=== PATIENT | female | born 1990 | race Caucasian/White ===

== ENCOUNTER → 2017-05-04 | Outpatient (CLI) | payer OTHER ==
[2017-05-04 12:28] LABS: BASO # 0.1 K/mm3 (0.0-0.2); BASO % 0.6 % (0.0-1.0); EOS # 0.2 K/mm3 (0.0-0.50); EOS % 1.6 % (0.0-3.0); LARGE UNSTAINED CELL # 0.2 K/mm3 (0.0-0.4); LARGE UNSTAINED CELL % 1.5 % (0.0-4.0); LYMPH # 1.9 K/mm3 (1.5-6.5); MEAN CORPUSCULAR HEMOGLOBIN 30.1 pg (27.0-33.0); MEAN CORPUSCULAR HGB CONC 33.8 g/dl (32.0-36.5); MONO # 0.6 K/mm3 (0.0-0.8); MONO % 4.6 % (0.0-5.0); NEUTROPHILS % 75.7 % (36.0-66.0); PLATELET COUNT, AUTOMATED 171 k/mm3 (150-450); RED CELL DISTRIBUTION WIDTH 12.9 % (11.5-14.5); WHITE BLOOD COUNT 11.9 K/mm3 (4.0-10.0)
== END ==
LOC: M SMT 08:37
PROVIDERS: ATTEND Advanced Practice Midwife
DX: Z34.83 Encounter for supervision of other normal pregnancy, third trimester (principal)
CPT/HCPCS: 36415; 82950; 85025; 86850; 86900; 86901; J2790

== ENCOUNTER 2017-07-28 07:21 | Inpatient (IN) | payer OTHER ==
[2017-07-28] VITALS (24 sets, daily range): BP systolic 98–125; BP diastolic 51–78
[~2017-07-28] VITALS: Ht 165.1 cm; Wt 78.8 kg
[2017-07-28] MEDS ORDERED: TUMS500C PO (07:44)
[2017-07-28] MEDS ORDERED: LACTATED RINGER'S 1000 ML IV STA (08:32)
[2017-07-28] MEDS ORDERED: LR 1,000 ML IV SCH (08:32)
--- NOTE | 2017-07-28 08:40 | HPEPDOC ---
[facility] Medical History & Physical Date of Admission Jul 28, [address] Trevon Alcazar Attending Physician: Eliana Yun CNM History and Physical HISTORY & PHYSICAL EXAMINATION DATE OF ADMISSION: 07/28/2017 27year-old, 2, para 1001, at 40 4/7 weeks gestation by last menstrual period of 10/17/2016 for an estimated date of delivery of 07/24/2017 presents to labor and delivery for elective induction at term . Upon evaluation, she is 3 cm, 60% effaced, -2 station. She reports active movement. Denies loss of fluid or bleeding. Sono at 8 weeks 0 days confirmed her due date. Prepregnancy weight was 135. Total weight gain 41 pounds. She has been normotensive through the . Last office visit was at 40 weeks 2 days on 07/26/2017. has been uncomplicated. Anatomy scan within normal limits. OB HISTORY: 04/2013 40 1/7 wks gestation. Female 8lb 10oz with an epidural. ALLERGIES: NKDA MEDICAL/SURGICAL HISTORY: Tonsillectomy FAMILY HISTORY: Cancer, thyroid disease, hypertension. Patient's brother has congenital kidney defect. SOCIAL HISTORY: , supportive and at bedside. Denies tobacco, alcohol or drugs. No history sexually transmitted infections OBJECTIVE: Labs are O-, antibody negative. Received Rhogam. Initial hemoglobin and hematocrit 14.2/41.3 with platelets of 198. Rubella immune. VDRL, hepatitis B, hepatitis C, HIV, gonorrhea, chlamydia all negative. Genetic screening declined. 1 hour GCT 91. Group B strep is negative. VITAL SIGNS: Stable. She is in no apparent distress. Abdomen is soft, gravid, nontender, longitudinal lie, vertex by Chilo. Infrequent Contractions heart 140, moderate variability with accelerations , category 1 tracing. Sterile vaginal exam: 3 cm, 60% effaced, -2 station, intact membranes and cephalic. EFW: 8 1/2 lbs ASSESSMENT: 27-year-old, 2, at 40 weeks 4 days gestation, induction of labor at term, category 1 tracing. PLAN:Admit patient with routine L and D orders for induction of labor. Start Pitocin. Patient plans for an epidural. Anticipate normal spontaneous vaginal . Plan of care discussed with patient including risks of induction including failed induction, increase risk for c/s, and intolerance. Patients questions have been answered and she agrees with plan. Home Medications Scheduled Calcium Carbonate (Tums) 500 Mg Chw, 500 MG PO 4XWK for INDIGESTION Allergies Coded Allergies: No Known Allergies (Verified Allergy, Unknown, 04/30/07) Eliana Yun CNM Jul 28, 2017 08:40
[2017-07-28] MEDS ORDERED: OXYTOCIN DRIP 30 UNITS in APPROPRIATE DILUENT 1 EA IV SCH (08:45)
[2017-07-28 10:12] LABS: MEAN CORPUSCULAR HEMOGLOBIN 26.3 pg (27.0-33.0); MEAN CORPUSCULAR HGB CONC 32.2 g/dl (32.0-36.5); MEAN CORPUSCULAR VOLUME 81.6 fl (80.0-96.0); PLATELET COUNT, AUTOMATED 175 10^3/uL (150-450); RED CELL DISTRIBUTION WIDTH 14.6 % (11.5-14.5)
--- NOTE | 2017-07-28 17:00 | IPNPDOC ---
Text Note Date of Service The patient was seen on 07/28/17. NOTE PROGRESS NOTE: S: Patient doing well.Denies any pain. Denies any complaints or concerns. O: Patient sitting up in bed, smiling and talking, at bedside. VSS FHR: 120, moderate variability, + accels,-decels CTX: 2-3 mins apart, lasting 50-60 secs moderate to palpate SVE: 3cm/70%-1, AROM copious amounts of clear odorless fluid. Pitocin at 14mu A: 27yo 40 4/7 weeks gestation here for IOL at term. Category 1 tracing P: Continue to monitor and support. Patient unsure of labor coping at this time. Anticipate . VS,Fishbone, I+O VS, Fishbone, I+O Laboratory Tests 07/28/17 10:05 Red Blood Count 4.03, Mean Corpuscular Volume 81.6, Mean Corpuscular Hemoglobin 26.3 L, Mean Corpuscular Hemoglobin Concent 32.2, Red Cell Distribution Width 14.6 H Vital Signs Date Time Temp Pulse Resp B/P (MAP) Pulse Ox O2 Delivery O2 Flow Rate FiO2 07/28/17 12:12 74 16 98/57 (71) 07/28/17 07:38 98.1 I&O- Last 24 Hours up to 6 AM 07/29/17 06:00 Output Total 575 ml Balance -575 ml Eliana Yun CNM Jul 28, 2017 17:00
[2017-07-28] MEDS ORDERED: BUTORPHANOL 2 MG/ML INJ (J0595) IV ONE (17:45)
[2017-07-28] MEDS ORDERED: PROMETHAZINE INJ 25 MG/ML VIAL (J2550) IV ONE (17:45)
[2017-07-28] MEDS ORDERED: DIBUCAINE 1% OINTMENT 30GM TOP PRN (19:45)
[2017-07-28] MEDS ORDERED: RHOGAM 300 MCG (1500 IU) INJ (J2790) IM SCH (19:45)
[2017-07-28] MEDS ORDERED: MEASLES,MUMPS,RUBELLA VACCINE INJ (MMR-II) (90707) SC SCH (19:45)
[2017-07-28] MEDS ORDERED: miSOPROStol 200 MCG TAB (S0191) PR ONE (19:45)
[2017-07-28] MEDS ORDERED: ANUSOL HC CREAM 30GM TOP PRN (19:45)
[2017-07-28] MEDS ORDERED: DOCUSATE SODIUM 100 MG CAP PO PRN (19:45)
[2017-07-28] MEDS ORDERED: IBUPROFEN 800 MG TAB PO PRN (19:45)
[2017-07-28] MEDS ORDERED: MOM 30ML SUSPENSION UDC PO PRN (19:45)
[2017-07-28] MEDS ORDERED: LIDOCAINE 1% MDV INJ 50 ML VIAL INFIL ONE (19:45)
--- NOTE | 2017-07-28 19:58 | DNPDOC ---
[facility] Delivery Note Delivery Note DATE OF DELIVERY: 07/28/2017 PREDELIVERY DIAGNOSIS: 40 4/7 weeks' gestation, elective IOL. POST DELIVERY DIAGNOSIS: Delivered. PROCEDURE: Spontaneous vaginal delivery. PROVIDER: Sivan clark CNM and Sherry PAZ ANESTHESIA: Stadol X1. ESTIMATED BLOOD LOSS: 800 mL. FINDINGS: 8 pound 12 ounce male , Score 8/9, nuchal cord times 1. DELIVERY SUMMARY: Patient is a 27-year-old 2 now para 2002 who was admitted to labor and delivery for elective induction of labor with IV Pitocin. AROM with copious amount of clear fluid at 1650. Patient utilized Stadol and Phenergan times one for labor coping. Fully dilated 184. Viable male delivered in OA to [facility] with a tight nuchal cord with the corpus that immediately followed in a somersault at 1857. was brought to maternal abdomen for transitioning. Tactile stimulation and bulb suction to mouth and nares were done by the nurse. Cord was clamped times two and cut by the father of the baby at 1-2 minutes of age. brought to the warmer for assessment. Placenta was delivered, Bee with three vessel cord at 1911. Noted to have a marginal cord insertion and trailing membranes.Fundus was boggy with massage and IV Pitocin bolus. Vaginal sweep was performed to remove clots. Cytotec 1000 mcg were given rectally. Fundus firmed with massage and excellent hemostasis. Vagina and perineum were inspected, noted to have a first degree midline laceration repaired with a 3-0 vicryl rapide with excellent hemostasis. EBL 800ml. Infant weighed 3970 grams/ 8lb 12oz. Apgars 8/9. Parents are naming their son Stu. Mom plans to breast feed her son. Eliana Clark CNM Jul 28, 2017 19:57
[2017-07-28] MEDS: METHYLERGONOVINE MALEATE 0.2 MG TAB PO SCH (20:02)
[2017-07-29] MEDS: METHYLERGONOVINE MALEATE 0.2 MG TAB PO SCH ×4 (01:57→20:04)
[2017-07-29 05:59] VITALS: BP 111/60
--- NOTE | 2017-07-29 06:27 | IPNPDOC ---
Text Note Date of Service The patient was seen on 07/29/17. NOTE Feels well. Adequate pain management. on demand. Voiding 98.3, 111/60 CBC pending Breasts soft, nipples intact Fundus firm, NT down 2 FB Lochia rubra light without odor Perineum well approximated without edema Legs negative A: PPD #1, PPH P: Routine care. Anticipate D/C in am VS,Fishbone, I+O VS, Fishbone, I+O Laboratory Tests 07/28/17 10:05 Red Blood Count 4.03, Mean Corpuscular Volume 81.6, Mean Corpuscular Hemoglobin 26.3 L, Mean Corpuscular Hemoglobin Concent 32.2, Red Cell Distribution Width 14.6 H Vital Signs Date Time Temp Pulse Resp B/P (MAP) Pulse Ox O2 Delivery O2 Flow Rate FiO2 07/29/17 05:59 98.3 83 16 111/60 (77) Eliana Yun CNM Jul 29, 2017 06:27
[2017-07-29 06:47] LABS: MEAN CORPUSCULAR VOLUME 78.9 fl (80.0-96.0); PLATELET COUNT, AUTOMATED 179 10^3/uL (150-450); RED CELL DISTRIBUTION WIDTH 14.5 % (11.5-14.5); WHITE BLOOD COUNT 16.6 10^3/uL (4.0-10.0)
[2017-07-29] MEDS: PRENATAL VITAMINS CHEWABLE TABLET PO SCH (07:54)
[2017-07-29] MEDS: ACETAMINOPHEN 500 MG TAB PO PRN ×2 (07:54→20:07)
[2017-07-29 18:00] VITALS: BP 105/59
[2017-07-30] MEDS: METHYLERGONOVINE MALEATE 0.2 MG TAB PO SCH ×2 (01:44→07:45)
[2017-07-30 06:17] VITALS: BP 106/63
[2017-07-30] MEDS: PRENATAL VITAMINS CHEWABLE TABLET PO SCH (08:36)
[2017-07-30] MEDS: ACETAMINOPHEN 500 MG TAB PO PRN (08:36)
[2017-07-30] MEDS ORDERED: ADACEL/BOOSTRIX VACCINE (DIPHTH/PERTUSS/ACELL/TETANUS)0.5ML SYR (90715) IM ONE (09:00)
[2017-07-30] MEDS ORDERED: IBUP-1114 PO (09:11)
[2017-07-30] MEDS ORDERED: ACET50TA PO (09:11)
[2017-07-30] MEDS ORDERED: PRENTAB9 PO (09:11)
[2017-07-30] MEDS ORDERED: METHYLERGONOVINE MALEATE 0.2 MG TAB PO PRN (13:45)
== END 2017-07-30 12:35 | disposition home or self-care (01) | DRG 560 ==
LOC: M LDI 07:21 → M OBS 21:45
PROVIDERS: ADMIT Advanced Practice Midwife; ATTEND Advanced Practice Midwife
PROC: 10E0XZZ Delivery of Products of Conception, External Approach (ICD-10-PCS; principal; 2017-07-28)
PROC: 3E033VJ Introduction of Other Hormone into Peripheral Vein, Percutaneous Approach (ICD-10-PCS; 2017-07-28)
PROC: 10907ZC Drainage of Amniotic Fluid, Therapeutic from Products of Conception, Via Natural or Artificial Opening (ICD-10-PCS; 2017-07-28)
PROC: 0HQ9XZZ Repair Perineum Skin, External Approach (ICD-10-PCS; 2017-07-28)
PROC: 30233S1 Transfusion of Nonautologous Globulin into Peripheral Vein, Percutaneous Approach (ICD-10-PCS; 2017-07-29)
DX: O48.0 Post-term pregnancy (principal); O69.2XX0 Labor and delivery complicated by other cord entanglement, with compression, not applicable or unspecified; Z37.0 Single live birth; Z3A.40 40 weeks gestation of pregnancy; O70.0 First degree perineal laceration during delivery

== ENCOUNTER → 2017-12-22 | Outpatient (CLI) | payer OTHER | LOC: M RAD 08:45 | DX: N64.4 Mastodynia (principal) ==

== ENCOUNTER → 2019-10-02 | Outpatient (CLI) | payer BC ==
[~2019-10-02] MED LIST: IBUP-1114 PO; MAPA500T2 PO; PRENTAB9 PO; TUMS500C PO
--- NOTE | 2019-10-02 17:39 | REPVR ---
PROCEDURE INFORMATION: Exam: CT Maxillofacial Without Contrast, Sinus Exam date and time: 10/02/2019 5:14 PM Age: 29 years old Clinical indication: Sinusitis; Chronic; Additional info: Chronic rhinitis, deviated nasal septum TECHNIQUE: Imaging protocol: CT Maxillofacial without contrast. Focus on the sinuses. Radiation optimization: All CT scans at this facility use at least one of these dose optimization techniques: automated exposure control; mA and/or kV adjustment per patient size (includes targeted exams where dose is matched to clinical indication); or iterative reconstruction. COMPARISON: No relevant prior studies available. FINDINGS: Frontal sinuses: Normal. No air-fluid levels. Ethmoid air cells: See Maxillary Sinuses Finding. Sphenoid sinuses: See Maxillary Sinuses Finding. Maxillary sinuses: Inflammatory changes in both maxillary sinuses, left greater than right. Densely opacified ethmoid sinuses demonstrated bilaterally. Minimal inflammatory changes in the sphenoid sinuses, left greater than right. Minimal inflammatory changes in the frontal ethmoidal complexes bilaterally. Orbits: Orbits are normal. Globes are unremarkable. Nasal cavity/Septum: Occlusion of both ostiomeatal complexes secondary to the membranous thickening. Soft tissues: Unremarkable. Bones/joints: Unremarkable. IMPRESSION: 1. Pansinusitis. 2. Occlusion of both ostiomeatal complexes secondary to membranous thickening. Electronically signed by: Arnulfo Rodriguez On 10/02/2019 17:39:20 PM
== END ==
LOC: M RAD 16:55
PROVIDERS: ATTEND Specialist
DX: J34.2 Deviated nasal septum (principal); J31.0 Chronic rhinitis

== ENCOUNTER → 2021-11-24 | Outpatient (CLI) | payer BC | LOC: M RAD 09:01 | PROVIDERS: ATTEND Otolaryngology | DX: J30.2 Other seasonal allergic rhinitis (principal) ==

== ENCOUNTER → 2022-03-17 | Outpatient (CLI) | payer BC ==
[~2022-03-17] MED LIST changes: +CITA20TA6 PO; +LORA-243 PO; +SYMB16INH INH; +VITMTA PO
== END ==
LOC: M LABSMTC 09:37
PROVIDERS: ATTEND Anesthesiology
DX: Z01.812 Encounter for preprocedural laboratory examination (principal); Z11.52 Encounter for screening for COVID-19

== ENCOUNTER 2022-03-22 08:41 | Day surgery (SDC) | payer BC ==
[~2022-03-22] VITALS: Ht 167.6 cm; Wt 63.9 kg
[2022-03-22] MEDS ORDERED: LR 1,000 ML IV SCH ×3 (09:35→15:25)
[2022-03-22] MEDS ORDERED: propofoL 200 MG/20 ML VIAL As Ordered ONE (11:27)
[2022-03-22] MEDS ORDERED: LIDOCAINE 2% 100MG/5ML SDV (FOR ANES.) As Ordered ONE (11:27)
[2022-03-22] MEDS ORDERED: fentaNYL 100 MCG/2 ML INJECTION As Ordered ONE ×2 (11:27→13:35)
[2022-03-22] MEDS ORDERED: MIDAZOLAM INJ 2MG/2ML VIAL (J2250 PER 1MG) As Ordered ONE (11:27)
[2022-03-22] MEDS ORDERED: ROCURONIUM BROMIDE 50 MG/5 ML VIAL As Ordered ONE ×2 (11:27→13:04)
[2022-03-22] MEDS ORDERED: LIDOCAINE W/EPINEPHRINE 1% 20ML VIAL As Ordered ONE (11:34)
[2022-03-22] MEDS ORDERED: OXYMETAZOLINE 0.05% NASAL SPRAY (AFRIN) As Ordered ONE (11:34)
[2022-03-22] MEDS ORDERED: COCAINE 4% 4ML NASAL SOLUTION BTL As Ordered ONE (11:34)
[2022-03-22] MEDS ORDERED: dexameTHASONE 4 MG/ML 1ML VIAL (J1100 PER 1MG) As Ordered ONE (12:22)
[2022-03-22] MEDS ORDERED: ONDANSETRON 4MG 2ML VIAL As Ordered ONE (12:24)
[2022-03-22] MEDS ORDERED: ACETAMINOPHEN 1000MG 100ML IV BTL (OFIRMEV) (J0131 PER 10MG) As Ordered ONE (12:37)
[2022-03-22] MEDS ORDERED: fentaNYL 100 MCG/2 ML INJECTION IV PRN (14:45)
[2022-03-22] MEDS ORDERED: PERCOCET 5MG/325MG TAB PO PRN (14:45)
[2022-03-22] MEDS ORDERED: MORPHINE 2 MG/ML 1ML VIAL IV PRN (14:45)
[2022-03-22] MEDS ORDERED: ONDANSETRON 4MG 2ML VIAL IV PRN ×2 (14:45→15:25)
[2022-03-22] MEDS ORDERED: ANEXSIA, NORCO 7.5MG/325MG TABLET(HYDROCODONE/APAP) PO PRN (15:25)
[2022-03-22 16:20] VITALS: BP 113/63
== END 2022-03-22 16:41 | disposition home or self-care (01) ==
LOC: M SDC 08:41
PROVIDERS: ATTEND Otolaryngology
DX: J32.9 Chronic sinusitis, unspecified (principal); J33.9 Nasal polyp, unspecified; F41.9 Anxiety disorder, unspecified; Z79.51 Long term (current) use of inhaled steroids; Z79.899 Other long term (current) drug therapy; J45.909 Unspecified asthma, uncomplicated
CPT/HCPCS: 31255; 31267; 81025; 88305; C9046; J0131; J1100; J2250; J2405; J3010